=== PATIENT | male | born 1990 | race Caucasian/White ===

== ENCOUNTER 2018-10-24 22:05 | Emergency (ER) | payer OTHER ==
[~2018-10-24] VITALS: Ht 167.6 cm; Wt 77.1 kg
[~2018-10-24 22:05] MED LIST: ADDERALL; DEPAKOTE ER500 MG PO; DEPAKOTE500 MG PO; KEPPRA 500 MG500 MG PO; KEPPRA1000 MG PO
[2018-10-24 22:45] LABS: ABSOLUTE EOSINOPHILS 0.1 thou/uL (0.0-0.7); ABSOLUTE LYMPHOCYTES 1.4 thou/uL (0.8-5.3); ABSOLUTE MONOCYTES 0.5 thou/uL (0.0-1.2); BASOPHILS 0.4 %; EOSINOPHILS 1.2 %; HEMATOCRIT 44.7 % (42.0-52.0); HEMOGLOBIN 15.4 gm/dL (14.0-18.0); LYMPHOCYTES 19.6 %; MCHC 34.5 g/dL (28.0-37.0); MCV 86.9 fL (80.0-100.0); MONOCYTES 7.6 %; MPV 9.1 fl. (7.2-11.1); NUCLEATED RBCS 0 /100WBC; PLATELET COUNT* 188 thou/uL (150-400); POLYS 71.2 %; RBC 5.14 mil/uL (4.50-6.00); RDW-CV 13.1 % (10.5-14.5)
[2018-10-24 22:48] LABS: CALCIUM 8.8 mg/dL (8.5-10.1); POTASSIUM 3.2 mmol/L (3.5-5.1)
[2018-10-24 22:53] LABS: TOTAL BILIRUBIN 0.3 mg/dL (<0.1-1.0); TOTAL PROTEIN 7.2 g/dL (6.4-8.2)
[2018-10-24] MEDS ORDERED: KEPPRA 500 MG500 M1 (23:02)
[2018-10-25 03:30] VITALS: BP 115/60
== END 2018-10-25 03:30 | disposition home or self-care (01) ==
LOC: M.ERS 22:05
PROVIDERS: Emergency Medicine
DX: R56.9 Unspecified convulsions (principal); F90.9 Attention-deficit hyperactivity disorder, unspecified type

== ENCOUNTER → 2020-12-15 | Outpatient (CLI) | payer OTHER ==
[~2020-12-15] MED LIST changes: +KEPPRA 500 MG500 M1
--- NOTE | 2020-12-17 12:32 | EEG ---
[address] [address] EEG STUDY REPORT Name: NETTE LAURA Room: [facility]#: [id number] Admission: 12/15/20 Attend Phys: Dirk Jauregui MD Discharge: Date of : 89 Report #: [id number] THIS REPORT FOR: cc: Nhan Hitchcock Adam J DO ~ Dirk Jauregui MD DATE OF SERVICE: 12/15/2020 ELECTROENCEPHALOGRAM This patient is being evaluated for the possibility of seizure. EEG was done by placing the electrode by standard 10-20 system of electrode placement. Both referential and sequential montages were used for recording. Background activity in this patient's EEG is about 10 Hz and 30 microvolt. This patient went to sleep that is associated with bilateral slowing and vertex sharp waves. Throughout the record, no active epileptiform activity was noticed. IMPRESSION: This patient's EEG is within normal limit. Thank you very much for this referral. <ELECTRONICALLY SIGNED> By: Dirk Jauregui MD 12/17/20 1232 1030 [id number] Jauregui MD /nt
== END ==
LOC: M.MRI 12-04 08:53
PROVIDERS: ATTEND Psychiatry & Neurology Neuromuscular Medicine
DX: R56.9 Unspecified convulsions (principal); J34.1 Cyst and mucocele of nose and nasal sinus